=== PATIENT | male | born 1940 | race Caucasian/White ===

== ENCOUNTER 2022-02-23 14:43 | Outpatient (CLI) | payer MEDICARE, BC, SELFPAY ==
[2022-02-23 16:06] LABS: Chloride* 103 mmol/L (96-114)
[2022-02-23 16:09] LABS: Blood Urea Nitrogen* 21 mg/dL (7-30); Carbon Dioxide* 26 mmol/L (20-32); Creatinine* 0.8 mg/dL (0.5-1.5); Estimated Glomerular Filt Rate 88 ml/min
[2022-02-23 16:10] LABS: Glucose* 96 mg/dL (60-115)
[2022-02-23 17:38] LABS: Sodium* 139 mmol/L (135-149)
== END 2022-02-23 14:44 | disposition home or self-care (01) ==
LOC: NFLDUCREF 14:44
PROVIDERS: PCP Family Medicine; Visit Provider Student in an Organized Health Care Education/Training Program
DX: R00.1 Bradycardia, unspecified (principal)
CPT/HCPCS: 80048

== ENCOUNTER 2023-05-19 09:58 | Outpatient (CLI) | payer MEDICARE, BC, SELFPAY | END 2023-05-19 09:59 | disposition home or self-care (01) | PROVIDERS: PCP Family Medicine; Referring Provider Family Medicine; Visit Provider Family Medicine | DX: I10 Essential (primary) hypertension (principal); Z13.220 Encounter for screening for lipoid disorders; Z85.46 Personal history of malignant neoplasm of prostate | CPT/HCPCS: 80048; 80061; G0103 ==

== ENCOUNTER 2023-09-23 23:44 | Emergency (ER) | payer MEDICARE, BC, SELFPAY ==
[2023-09-23 23:54] VITALS: BP 152/84; PULSE 50; RESP 20; TEMP 36.3; O2SAT 92; BMI 32.9
[2023-09-24] VITALS (10 sets, daily range): BP systolic 125–160; BP diastolic 72–81; PULSE 52–60; RESP 20; TEMP 36.6; O2SAT 91–93
--- NOTE | 2023-09-24 00:06 | ED_ITS ---
HPI - General Adult General Chief complaint: Abdominal Pain Stated complaint: lower left abdominal pain, vomiting Time Seen by Provider: 09/24/23 00:04 History of Present Illness HPI narrative: Left sided abdominal/ flank pain starting at 4 pm. Nauseated. Normal BMs, no abdominal surgeries, last oral intake 4 pm 83-year-old man presenting to the emergency department. He describes this as a deep ache. Been fairly persistent. Ongoing over the last 7 hours. He has been nauseated as well. With the onset of this pain he thought he should just put himself to bed. Did though also try a laxative then apparently had a good bowel movement today which did not change his pain in fact he got worse. Interview was a little challenging due to difficulty with recall and hard of hearing. He does endorse a history of bladder stones but no diagnosed ?kidney stones?. He thinks that is having maybe a small bowel obstruction noted that he has been hospitalized here many years ago with what sounds like some degree of small- bowel obstruction. Has had radiation to the pelvis actually history of prostate cancer. Has some enlarged lymph nodes apparently malignant as received another course of radiation recently. They note a 1 in mass in the colon as well that is pending sigmoidoscopy in about a week. Otherwise not been any fever. The loose stool that he had today was aided by laxative. He did urinate normally and has not noticed any hematuria. No dysuria. Related Data Home Medications ?Medication ?Instructions ?Recorded ?Confirmed cholecalciferol (vitamin D3) 125 125 mcg PO DAILY 02/19/22 07/29/23 mcg (5,000 unit) tablet acetaminophen 325 mg tablet 650 mg PO QDAY PRN 02/27/22 07/29/23 Previous Rx's ?Medication ?Instructions ?Recorded hydrochlorothiazide 25 mg tablet 25 mg PO DAILY #90 tabs 05/21/23 lisinopril 20 mg tablet 20 mg PO DAILY #90 tabs 05/21/23 sertraline 100 mg tablet 100 mg PO DAILY #90 tabs 05/21/23 tamsulosin 0.4 mg capsule 0.4 mg PO DAILY #90 caps 05/21/23 clobetasol 0.05 % topical cream 1 applic topical BID #60 grams 07/29/23 Allergies Allergy/AdvReac Type Severity Reaction Status Date / Time No Known Drug Allergies Allergy Verified 09/24/23 00:58 Review of Systems Status of ROS: Reports: 6 or more systems reviewed and unremarkable except as noted in History and below 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 - Other specified disorders of the skin and subcutaneous tissue (ICD- 10) Actinic keratosis ?L57.0 - Actinic keratosis (ICD-10) Bradycardia ?R00.1 - Bradycardia, unspecified (ICD-10) Prostate cancer (2013) ?C61 - Malignant neoplasm of prostate (ICD-10) Constipation ?K59.00 - Constipation, unspecified (ICD-10) Hydronephrosis of left kidney ?N13.30 - Unspecified hydronephrosis (ICD-10) History of nonmelanoma skin cancer ?Z85.828 - Personal history of other malignant neoplasm of skin (ICD-10) Erectile dysfunction ?N52.9 - Male erectile dysfunction, unspecified (ICD-10) Macular degeneration of both eyes (2016) ?H35.30 - Unspecified macular degeneration (ICD-10) Hypertension ?I10 - Essential (primary) hypertension (ICD-10) Surgical History History of varicose vein ligation (07/2012) ?Z98.890 - Other specified postprocedural states (ICD-10) ?Z86.79 - Personal history of other diseases of the circulatory system (ICD- 10) History of spinal surgery (1991) ?Z98.890 - Other specified postprocedural states (ICD-10) History of repair of left rotator cuff (06/2011) ?Z98.890 - Other specified postprocedural states (ICD-10) History of lithotripsy (03/03/19) ?Z98.890 - Other specified postprocedural states (ICD-10) History of hand surgery (10/2001) ?Z98.890 - Other specified postprocedural states (ICD-10) History of bilateral cataract extraction (2016) ?Z98.41 - Cataract extraction status, right eye (ICD-10) ?Z98.42 - Cataract extraction status, left eye (ICD-10) Family History Father Coronary artery disease Stroke, Onset Age: 75 Mother Stroke, Onset Age: 75 Son Diabetes Social History Narrative: , retired propane install and repair technician, 3 kids nonsmoker 8 drinks/week sedentary lifestyle What is your current living situation?: I presently have a place to live Problems where you live: no known problems In the past 12 months, utilities in danger of being shut off: no In past 12 months, lack of transportation kept you from medical appts, meetings, work, or getting things needed for daily living: no In the past 12 mos, have been you worried that your food would run out before you had money to buy more?: never true In the past 12 mos, the food you bought just didn't last and you didn't have money to buy more?: never true Smoking Status: Former smoker How often does anyone, including family, friends and others, physically hurt you : never How often does anyone, including family, friends and others, insult or talk down to you: never How often does anyone, including family, friends and others, threaten you with harm: never How often does anyone, including family, friends and others, scream or curse at you: never Little interest or pleasure in doing things: several days Feeling down, depressed, or hopeless: not at all Exam Narrative: Exam Narrative: Calm. Pleasant. Little hard of hearing. A little distracted. Emesis bag nearby. Breathing easily. Lungs appear to be clear. Cranial nerves 2-12 intact. Heart in slowed but regular rhythm. Abdomen is overweight soft and rather tender through the left low abdomen into left flank. Present to hyperactive bowel sounds. No masses. Lower extremities was 1+ pretibial pitting edema. Is well-perfused generally. Is moving all extremities without difficulty. Const: Vital Signs, click to edit/add: Vital Signs - 24 hr 09/23/23 23:54 09/24/23 00:15 09/24/23 00:16 Temperature 97.4 F L Pulse Rate 54 L 53 L Pulse Rate [Pulse Oximeter] 50 L Respiratory Rate 20 Blood Pressure 159/72 H Blood Pressure [Ri ght Upper Arm] 152/84 H Pulse Oximetry 92 91 91 Oxygen Delivery Me thod Room Air 09/24/23 00:17 09/24/23 00:29 09/24/23 00:30 Temperature Pulse Rate 54 L 55 L Pulse Rate [Pulse Oximeter] Respiratory Rate Blood Pressure 160/78 H Blood Pressure [Ri ght Upper Arm] Pulse Oximetry 91 91 91 Oxygen Delivery Me thod 09/24/23 00:32 09/24/23 00:32 09/24/23 00:36 Temperature 97.9 F Pulse Rate 52 L 52 L Pulse Rate [Pulse Oximeter] Respiratory Rate Blood Pressure 158/81 H 158/81 H Blood Pressure [Ri ght Upper Arm] Pulse Oximetry 93 93 Oxygen Delivery Me thod 09/24/23 01:37 09/24/23 01:43 09/24/23 02:00 Temperature 97.9 F 97.9 F 97.9 F Pulse Rate Pulse Rate [Pulse Oximeter] 60 60 Respiratory Rate 20 20 Blood Pressure Blood Pressure [Ri ght Upper Arm] 125/78 125/78 Pulse Oximetry 93 Oxygen Delivery Me thod Room Air Documenting provider has reviewed patient's vital signs: yes Course Vital Signs Vital signs: Initial Vital Signs Temperature 97.4 F L 09/23/23 23:54 Temperature Source Temporal Artery Scan 09/23/23 23:54 Pulse Rate 50 L 09/23/23 23:54 Respiratory Rate 20 09/23/23 23:54 Blood Pressure 152/84 H 09/23/23 23:54 Blood Pressure Mean 106 H 09/23/23 23:54 Blood Pressure Position Sitting 09/23/23 23:54 Pulse Oximetry 92 09/23/23 23:54 Oxygen Delivery Method Room Air 09/23/23 23:54 Vital Signs Temperature 97.4 F L 09/23/23 23:54 Pulse Rate 50 L 09/23/23 23:54 Respiratory Rate 20 09/23/23 23:54 Blood Pressure 152/84 H 09/23/23 23:54 Pulse Oximetry 92 09/23/23 23:54 Oxygen Delivery Method Room Air 09/23/23 23:54 Temperature 97.9 F 09/24/23 02:00 Pulse Rate 60 09/24/23 02:00 Respiratory Rate 20 09/24/23 02:00 Blood Pressure 125/78 09/24/23 02:00 Pulse Oximetry 93 09/24/23 01:43 Oxygen Delivery Method Room Air 09/24/23 01:43 Medications Administered Medications: Discontinued Medications Generic Name Dose Route Start Last Admin Trade Name Freq PRN Reason Stop Dose Admin Hydromorphone HCl 0.5 mg 09/24/23 00:25 09/24/23 00:37 Hydromorphone 0.5 Mg/0.5 Ml Inj IVP 09/24/23 00:26 0.5 mg ONCE ONE Administration Sodium Chloride 1,000 mls @ 1,000 mls/hr 09/24/23 00:25 09/24/23 01:37 0.9 % Sodium Chloride 1000 Ml IV 09/24/23 01:24 Infused .Q1H ONE Infusion Ketorolac Tromethamine 15 mg 09/24/23 00:25 09/24/23 00:36 Ketorolac 15 Mg/Ml Inj IVP 09/24/23 00:26 15 mg ONCE ONE Administration Ondansetron HCl 4 mg 09/24/23 00:25 09/24/23 00:35 Ondansetron 2 Mg/Ml Inj IVP 09/24/23 00:26 4 mg ONCE ONE Administration Medical Decision Making MDM Narrative Medical decision making narrative: This deep pain traversing where I would imagine the ureter to be I suspect is actually related to ureteral stone and colic. He does appear to be endorsing history of ?bladder stones?. Otherwise denying history of kidney stones. Vascular dissection/disruption in differential as well. He does have concern a bowel obstruction I think this is less likely. Given degree of pain will need imaging I think. IV was established. And checking labs and given initial dosing of Dilaudid and lower does ketorolac and Zofran. On reassessment pain is markedly improved. Urinalysis does show hematuria. CT scan with IV contrast reviewed by me shows moderate left hydroureter and then some mid ureteral calcification but I but it seems to makes with other what I think are vascular calcifications in the area. Difficult to distinguish. I think likely small stone is present with ureteral spasm leading to hydronephrosis. Radiology over-read the CT imaging as below Procedure(s): CT abdomen pelvis w con Accession Number(s): [id number] cc: Delia Baez M.D.; Kali Pugh M.D.~ For Patients: As a result of the Century Cures Act, medical imaging exams and procedure reports are released immediately into your electronic medical record. You may view this report before your referring provider. If you have questions, please contact your health care provider. INDICATION: FLANK/ABD PAIN THAT RADIATES INTO GROIN, HX OF PROSTATE CA. TECHNIQUE: CT abdomen and pelvis acquired with 118 cc of Isovue 370 IV contrast. COMPARISON: None. FINDINGS: Lower chest: Bibasilar scarring and/or atelectasis, primarily in the lower lobes. Liver: Unremarkable. Normal in size and attenuation. No suspicious masses. Gallbladder and bile ducts: Cholelithiasis. No inflammation or biliary ductal dilation. Pancreas: Unremarkable. No mass or inflammation. Spleen: Unremarkable. Normal in size. No masses. Adrenal glands: Indeterminate 2.2 cm left adrenal nodule. Kidneys, Ureters, and Bladder: Unremarkable right kidney and ureter. Punctate stone within the left mid ureter with associated mild proximal hydroureteronephrosis and periureteral inflammatory stranding. Unremarkable bladder. Left parapelvic cysts. Punctate nonobstructing left nephrolith. GI tract: Unremarkable. Normal in caliber. No sign of mass or inflammation. The appendix is not clearly visualized; however, there are no inflammatory changes in the right lower quadrant. Vasculature: Normal caliber abdominal aorta with moderate atherosclerotic calcification. Mesenteric arteries are patent. Lymph nodes: No lymphadenopathy. Peritoneum/Abdominal Wall: Presacral soft tissue masslike density measuring 2.8 x 1.9 cm (2/145). No free air or significant free fluid. Pelvis: Normal-sized prostate with brachytherapy seeds. Bones: Unremarkable for age. IMPRESSION: 1. Punctate stone within the left mid ureter with associated mild proximal hydroureteronephrosis and periureteral inflammatory stranding. 2. Presacral soft tissue masslike density measuring approximately 2.8 x 1.9 cm in cross-section. No prior study available for comparison. A malignancy or metastatic disease can not be excluded, particularly given the history of prostate cancer. Consider outpatient MRI or PET-CT for further evaluation. 3. Indeterminate 2.2 cm left adrenal nodule. This can be further evaluated with an adrenal CT as an outpatient. 4. Cholelithiasis. Known presacral mass per my conversation with Mr. Mosley and his . Currently receiving treatment. See patient discharge plan for further discussion Medical Records Medical records reviewed: Yes I reviewed the patient's medical records Lab Data Lab results reviewed: Yes I reviewed the patient's lab results Labs: Lab Results 05/31/24 05/31/24 05/31/24 Range/Units 00:00 00:19 00:26 WBC 5.36 (4.50-11.00) K/uL RBC 3.92 L (4.30-5.90) m/uL Hgb 13.3 L (13.5-17.5) gm/dL Hct 37.5 (37.0-53.0) % MCV 96 (80-100) fL MCH 34 (26-34) pg MCHC 36 (32-36) gm/dL RDW Coeff of Alessandro 13.0 (11.5-15.5) % Plt Count 91 L (140-440) K/uL Neut % (Auto) 69.9 (42.0-72.0) % Lymph % (Auto) 9.5 L (20-44) % [place] % (Auto) 15.7 H (0.0-11.0) % Eos % (Auto) 3.4 (0.0-7.0) % Baso % (Auto) 0.2 (0.0-3.0) % Neut # (Auto) 3.75 (1.7-7.0) K/uL Lymph # (Auto) 0.50 L (0.90-2.90) K/uL [place] # (Auto) 0.80 (0.00-0.90) K/UL Eos # (Auto) 0.18 (0.00-0.50) K/uL Baso # (Auto) 0.01 (0.00-0.30) K/uL Abs Immat Gran (auto) 0.07 (0.00-0.30) K/uL Imm/Tot Granulo (auto) 1.3 % D-Dimer Quant (PE/DVT) 0.24 (0.00-0.50) ug/ml Sodium 135 (135-149) mmol/L Potassium 3.9 (3.6-5.1) mmol/L Chloride 105 (96-114) mmol/L Carbon Dioxide 24 (20-32) mmol/L Anion Gap 6 L (7-15) mEq/L BUN 22 (7-30) mg/dL Creatinine 0.8 (0.5-1.5) mg/dL Estimated Creat Clear 63.93 Estimated GFR 87 ml/min Glucose 131 H (60-115) mg/dL Calcium 9.0 (8.4-10.6) mg/dL C-Reactive Protein < 0.5 L (0.5-1.0) mg/dL Urine Color (Yellow) Urine Appearance (Clear) Urine pH (5.0-8.5) Ur Specific [place] (1.000-1.030) Urine Protein (Negative) Urine Glucose (UA) (Negative) Urine Ketones (Negative) Urine Blood (Negative) Urine Nitrite (Negative) Urine Bilirubin (Negative) Urine Urobilinogen (0.2-1.0) Ur Leukocyte Esterase (Negative) Urine RBC (0-2) Urine WBC (0-5) Ur Squamous Epith Cells (None-Few) Urine Bacteria (None) POC Creatinine 1.0 (0.6-1.3) mg/dl POC Troponin I 0.02 (0.01-0.04) ng/ml 09/24/23 Range/Units 00:55 WBC (4.50-11.00) K/uL RBC (4.30-5.90) m/uL Hgb (13.5-17.5) gm/dL Hct (37.0-53.0) % MCV (80-100) fL MCH (26-34) pg MCHC (32-36) gm/dL RDW Coeff of Alessandro (11.5-15.5) % Plt Count (140-440) K/uL Neut % (Auto) (42.0-72.0) % Lymph % (Auto) (20-44) % [place] % (Auto) (0.0-11.0) % Eos % (Auto) (0.0-7.0) % Baso % (Auto) (0.0-3.0) % Neut # (Auto) (1.7-7.0) K/uL Lymph # (Auto) (0.90-2.90) K/uL [place] # (Auto) (0.00-0.90) K/UL Eos # (Auto) (0.00-0.50) K/uL Baso # (Auto) (0.00-0.30) K/uL Abs Immat Gran (auto) (0.00-0.30) K/uL Imm/Tot Granulo (auto) % D-Dimer Quant (PE/DVT) (0.00-0.50) ug/ml Sodium (135-149) mmol/L Potassium (3.6-5.1) mmol/L Chloride (96-114) mmol/L Carbon Dioxide (20-32) mmol/L Anion Gap (7-15) mEq/L BUN (7-30) mg/dL Creatinine (0.5-1.5) mg/dL Estimated Creat Clear Estimated GFR ml/min Glucose (60-115) mg/dL Calcium (8.4-10.6) mg/dL C-Reactive Protein (0.5-1.0) mg/dL Urine Color Yellow (Yellow) Urine Appearance Slightly Cloudy A (Clear) Urine pH 5.5 (5.0-8.5) Ur Specific [place] >= 1.030 (1.000-1.030) Urine Protein Trace A (Negative) Urine Glucose (UA) Negative (Negative) Urine Ketones Negative (Negative) Urine Blood 3+ A (Negative) Urine Nitrite Negative (Negative) Urine Bilirubin Negative (Negative) Urine Urobilinogen 0.2 (0.2-1.0) Ur Leukocyte Esterase Negative (Negative) Urine RBC 25-50 A (0-2) Urine WBC 2-5 (0-5) Ur Squamous Epith Cells Few (None-Few) Urine Bacteria Moderate A (None) POC Creatinine (0.6-1.3) mg/dl POC Troponin I (0.01-0.04) ng/ml ECG Data Attestation: I personally reviewed and interpreted this ECG as follows: (Sinus bradycardia rate of 52) Discharge Plan Discharge Clinical Impression: Left ureteral stone, Ureteral colic, Cholelithiasis Patient Disposition: Home w/ Parent or Adult Condition: Improved Additional Instructions: Generally stay well-hydrated. Please take this copy of this abdomen and pelvis CT radiology read to your care team/primary care provider. Temporarily and maybe with a little food can take up to 600 mg of ibuprofen 3 times daily. Also prescribing [place]. an opiate, which contains hydrocodone and 325 mg of acetaminophen per tablet. This is available in [facility]. If you are taking [place] I would once or twice a day also take a tablet of senna. Also Zofran from [facility] for nausea. Continue to take Flomax/tamsulosin as this can help with ureteral spasm. Consider straining your urine over this next week. If pain controlled but still clearly present in 4-5 days I would follow-up for re-evaluation. Otherwise return/be seen sooner for marked increase in persistent pain, uncontrolled pain, fever. Prescriptions: No Action cholecalciferol (vitamin D3) 125 mcg (5,000 unit) tablet 125 mcg PO DAILY acetaminophen 325 mg tablet 650 mg PO QDAY PRN Rx Instructions: NO MORE THAN 4000 MG/DAY clobetasol 0.05 % cream 1 applic topical BID Qty: 60 0RF Rx Instructions: Apply twice daily to scalp area affected x 6 weeks. hydrochlorothiazide 25 mg tablet 25 mg PO DAILY Qty: 90 3RF Rx Instructions: Appt and labs needed in February lisinopril 20 mg tablet 20 mg PO DAILY Qty: 90 3RF sertraline 100 mg tablet 100 mg PO DAILY Qty: 90 3RF tamsulosin 0.4 mg capsule 0.4 mg PO DAILY Qty: 90 3RF Follow Up/Referrals: Delia Baez MD [Staff Physician] - Stand Alone Forms: [employer] Info Instructions
--- NOTE | 2023-09-24 00:25 | CRLHL7_ITS ---
For Patients: As a result of the 21st Century Cures Act, medical imaging exams and procedure reports are released immediately into your electronic medical record. You may view this report before your referring provider. If you have questions, please contact your health care provider. INDICATION: FLANK/ABD PAIN THAT RADIATES INTO GROIN, HX OF PROSTATE CA. TECHNIQUE: CT abdomen and pelvis acquired with 118 cc of Isovue 370 IV contrast. COMPARISON: None. FINDINGS: Lower chest: Bibasilar scarring and/or atelectasis, primarily in the lower lobes. Liver: Unremarkable. Normal in size and attenuation. No suspicious masses. Gallbladder and bile ducts: Cholelithiasis. No inflammation or biliary ductal dilation. Pancreas: Unremarkable. No mass or inflammation. Spleen: Unremarkable. Normal in size. No masses. Adrenal glands: Indeterminate 2.2 cm left adrenal nodule. Kidneys, Ureters, and Bladder: Unremarkable right kidney and ureter. Punctate stone within the left mid ureter with associated mild proximal hydroureteronephrosis and periureteral inflammatory stranding. Unremarkable bladder. Left parapelvic cysts. Punctate nonobstructing left nephrolith. GI tract: Unremarkable. Normal in caliber. No sign of mass or inflammation. The appendix is not clearly visualized; however, there are no inflammatory changes in the right lower quadrant. Vasculature: Normal caliber abdominal aorta with moderate atherosclerotic calcification. Mesenteric arteries are patent. Lymph nodes: No lymphadenopathy. Peritoneum/Abdominal Wall: Presacral soft tissue masslike density measuring 2.8 x 1.9 cm (2/145). No free air or significant free fluid. Pelvis: Normal-sized prostate with brachytherapy seeds. Bones: Unremarkable for age. IMPRESSION: 1. Punctate stone within the left mid ureter with associated mild proximal hydroureteronephrosis and periureteral inflammatory stranding. 2. Presacral soft tissue masslike density measuring approximately 2.8 x 1.9 cm in cross-section. No prior study available for comparison. A malignancy or metastatic disease can not be excluded, particularly given the history of prostate cancer. Consider outpatient MRI or PET-CT for further evaluation. 3. Indeterminate 2.2 cm left adrenal nodule. This can be further evaluated with an adrenal CT as an outpatient. 4. Cholelithiasis. Please note that all CT scans at this facility use dose modulation, iterative reconstruction, and/or weight-based dosing when appropriate to reduce radiation dose to as low as reasonably achievable. Dictated by Hieu Cordero MD @ 09/24/2023 1:19:18 AM (Electronically Signed)
[2023-09-24 00:34] LABS: Troponin, Point-of-Care* 0.02 ng/ml (0.01-0.04)
[2023-09-24] MEDS: ONDANSETRON 2 MG/ML inj 4 MG IVP (00:35)
[2023-09-24] MEDS: KETOROLAC 15 MG/ML inj IVP (00:36)
[2023-09-24] MEDS: HYDROmorphone 0.5 mg/0.5 ml inj IVP (00:37)
[2023-09-24] MEDS: 0.9 % SODIUM CHLORIDE 1000 ml 1,000 ML IV (00:37)
[2023-09-24 00:41] LABS: Basophils Absolute Auto 0.01 K/uL (0.00-0.30); Basophils Percent Auto 0.2 % (0.0-3.0); Eosinophils Absolute Auto 0.18 K/uL (0.00-0.50); Eosinophils Percent Auto 3.4 % (0.0-7.0); Hematocrit 37.5 % (37.0-53.0); Hemoglobin* 13.3 gm/dL (13.5-17.5); Immature Granulocytes Abs Auto 0.07 K/uL (0.00-0.30); Immature Granulocytes Pct Auto 1.3 %; Lymphocytes Percent Auto 9.5 % (20-44); Mean Corpuscular HGB Conc 36 gm/dL (32-36); Mean Corpuscular Hemoglobin 34 pg (26-34); Mean Corpuscular Volume 96 fL (80-100); Monocytes Percent Auto 15.7 % (0.0-11.0); Neutrophils Absolute Auto 3.75 K/uL (1.7-7.0); Neutrophils Percent Auto 69.9 % (42.0-72.0); Platelet Count* 91 K/uL (140-440); Red Blood Count 3.92 m/uL (4.30-5.90); White Blood Count* 5.36 K/uL (4.50-11.00)
[2023-09-24 00:43] LABS: Slide Review Reflex No
[2023-09-24 01:02] LABS: D Dimer Quantitative* 0.24 ug/ml (0.00-0.50)
[2023-09-24 01:09] LABS: Appearance Urine Slightly Cloudy (Clear); Bilirubin Urine Negative (Negative); Blood Urine 3+ (Negative); Color Urine Yellow (Yellow); Glucose Urine Negative (Negative); Ketones Urine Negative (Negative); Leukocyte Esterase Urine Negative (Negative); Nitrite Urine Negative (Negative); Protein Urine Trace (Negative); Specific Gravity Urine >= 1.030 (1.000-1.030); Urobilinogen Urine 0.2 (0.2-1.0); pH Urine 5.5 (5.0-8.5)
[2023-09-24 01:15] LABS: Bacteria Urine Moderate; RBC Urine 25-50 (0-2); Squamous Epithelial Cell Urine Few (None-Few)
[2023-09-24 01:21] LABS: Chloride* 105 mmol/L (96-114); Potassium* 3.9 mmol/L (3.6-5.1); Sodium* 135 mmol/L (135-149)
[2023-09-24 01:24] LABS: Creatinine* 0.8 mg/dL (0.5-1.5); Est. Creatinine Clearance* 63.93; Estimated Glomerular Filt Rate 87 ml/min
[2023-09-24 01:25] LABS: Anion Gap 6 mEq/L (7-15); Blood Urea Nitrogen* 22 mg/dL (7-30); Carbon Dioxide* 24 mmol/L (20-32); Glucose* 131 mg/dL (60-115)
[2023-09-24 01:28] LABS: C Reactive Protein* < 0.5 mg/dL (0.5-1.0)
== END 2023-09-24 02:00 | disposition home or self-care (01) ==
LOC: ED 09-24 01:48
PROVIDERS: Emergency Provider Family Medicine
DX: N20.2 Calculus of kidney with calculus of ureter (principal); K80.20 Calculus of gallbladder without cholecystitis without obstruction
CPT/HCPCS: 36415; 74177; 80048; 81001; 82565; 84484; 85025; 85379; 86140; 87086; 93005; 94761; 96374; 96375; 99284; J1170; J1885; J2405; J7030; Q9967